=== PATIENT | male | born 1930 | race Caucasian/White ===

== ENCOUNTER → 2016-07-15 | Outpatient (CLI) | payer MEDICARE ==
[2016-07-15 12:26] LABS: INR 1.13 (0.9-1.15); Prothrombin Time 11.6 sec (9.37-12.3)
[2016-07-15 12:40] LABS: Albumin 3.6 g/dL (3.4-5.0); BUN/Creatinine Ratio 21.9; Bilirubin, Total 1.3 mg/dL (0.2-1.0); Calcium 9.5 mg/dL (8.5-10.1); Potassium 4.3 mmol/L (3.5-5.1); Total Protein 7.8 g/dL (6.4-8.2)
[2016-07-15 13:42] LABS: Urine Bilirubin Negative (Negative); Urine Blood Negative /uL (Negative); Urine Color Yellow (Yellow); Urine Glucose Normal (Normal); Urine Ketone Negative (Negative); Urine Mucus FEW (None Seen); Urine Nitrite Negative (Negative); Urine RBC <1 /hpf (0 - 3); Urine Squamous Epithelial Cell FEW /hpf (<5); Urine Urobilinogen Normal (Negative); Urine pH 5.5 (5.0-8.0)
[2016-07-15 14:32] LABS: DEFINITIVE VIEW TRANSMISSION; Hemoglobin 7.7 g/dL (13.5-17.5); Mean Corpuscular Hemoglobin 37.5 pg (28.0-32.0); Mean Corpuscular Hgb Conc. 33.4 g/dL (32.0-36.0); Mean Corpuscular Volume 112.1 fL (80.0-100.0); Mean Platelet Volume 8.3 fL (7.4-10.4); Platelet Count (auto) 59 10^3/uL (140-450); Red Cell Distribution Width 17.4 % (11.6-16.0); SUSPECT VIEW TRANSMISSION
[2016-07-15 14:37] LABS: Myelocytes % 0; Promyelocytes % 0; Reactive Lymphocytes 0
[2016-07-15 14:42] LABS: Metamyelocytes % 1; Platelet Estimate Adequate
[2016-07-15 14:43] LABS: Anisocytosis Moderate; Macrocytosis Moderate
== END | disposition home or self-care (01) ==
LOC: LAB 11:48
PROVIDERS: ATTEND Internal Medicine
DX: R53.82 Chronic fatigue, unspecified (principal); C03.9 Malignant neoplasm of gum, unspecified
CPT/HCPCS: 36415; 80053; 81001; 85007; 85027; 85610; 85730

== ENCOUNTER → 2016-08-04 | Outpatient (CLI) | payer OTHER ==
[~2016-08-04] MED LIST: ATOR20TA50 PO; CARV6.2551 PO; CLOP75TA41 PO; FOLI1TAB6 PO; MAGN400C3 PO; MELA5TAB10 PO; MULT-902 OR; NIAC500T58 PO; VALS40TA2 PO
[2016-08-04 10:45] LABS: DEFINITIVE VIEW TRANSMISSION; Hematocrit 25.3 % (41.0-53.0); Hemoglobin 8.5 g/dL (13.5-17.5); Mean Corpuscular Hemoglobin 32.7 pg (28.0-32.0); Mean Corpuscular Hgb Conc. 33.7 g/dL (32.0-36.0); Mean Corpuscular Volume 97.2 fL (80.0-100.0); Mean Platelet Volume 8.3 fL (7.4-10.4); Platelet Count (auto) 46 10^3/uL (140-450); SUSPECT VIEW TRANSMISSION
[2016-08-04 11:05] LABS: Red Cell Distribution Width 22.3 % (11.6-16.0)
[2016-08-04 11:07] LABS: White Blood Cell 1.4 10^3/uL (4.4-10.8)
[2016-08-04 11:08] LABS: Metamyelocytes % 0; Myelocytes % 0; Promyelocytes % 0; Reactive Lymphocytes 0
[2016-08-04 14:48] LABS: Anisocytosis Moderate; Burr Cells FEW; Platelet Estimate Decreased
[2016-08-04 14:49] LABS: Ovalocytes FEW; Tear Drop Cells FEW
== END | disposition home or self-care (01) ==
LOC: LAB 09:27
PROVIDERS: ATTEND Internal Medicine
DX: D46.9 Myelodysplastic syndrome, unspecified (principal)
CPT/HCPCS: 36415; 85007; 85027

== ENCOUNTER → 2016-08-11 | Outpatient (CLI) | payer OTHER | END | disposition home or self-care (01) | LOC: LAB 10:59 | PROVIDERS: ATTEND Internal Medicine | DX: D64.9 Anemia, unspecified (principal) ==

== ENCOUNTER → 2016-08-16 | Outpatient (CLI) | payer OTHER ==
[2016-08-16 11:20] LABS: DEFINITIVE VIEW TRANSMISSION; SUSPECT VIEW TRANSMISSION
[2016-08-16 11:40] LABS: Hematocrit 18.7 % (41.0-53.0); Mean Corpuscular Hemoglobin 33.6 pg (28.0-32.0); Mean Corpuscular Hgb Conc. 35.2 g/dL (32.0-36.0); Mean Corpuscular Volume 95.4 fL (80.0-100.0); Mean Platelet Volume 8.1 fL (7.4-10.4); Platelet Count (auto) 33 10^3/uL (140-450)
[2016-08-16 11:57] LABS: Red Cell Distribution Width 23.5 % (11.6-16.0)
[2016-08-16 11:59] LABS: Hemoglobin 6.6 g/dL (13.5-17.5); White Blood Cell 1.6 10^3/uL (4.4-10.8)
[2016-08-16 12:00] LABS: Metamyelocytes % 0; Myelocytes % 0; Promyelocytes % 0; Reactive Lymphocytes 0
[2016-08-16 12:10] LABS: Albumin 3.3 g/dL (3.4-5.0); BUN/Creatinine Ratio 23.3; Bilirubin, Total 1.8 mg/dL (0.2-1.0); Calcium 9.9 mg/dL (8.5-10.1); Potassium 4.3 mmol/L (3.5-5.1); Total Protein 7.2 g/dL (6.4-8.2)
[2016-08-16 14:15] LABS: Anisocytosis Marked; Ovalocytes FEW; Platelet Estimate Decreased; Tear Drop Cells FEW
== END | disposition home or self-care (01) ==
LOC: LAB 11:02
PROVIDERS: ATTEND Internal Medicine
DX: D46.9 Myelodysplastic syndrome, unspecified (principal)
CPT/HCPCS: 36415; 80053; 83615; 85007; 85027

== ENCOUNTER → 2016-08-17 | Day surgery (SDC) | payer MEDICARE, OTHER ==
[~2016-08-17] VITALS: Ht 30.5 cm; Wt 0.5 kg
[~2016-08-17] MED LIST changes: +FUROSEMIDE 20 MG/2 ML VIAL IV ONE
[2016-08-17 16:55] VITALS: BP 132/64
== END ==
LOC: EDUNIT# 10:19 → SUR 10:19
PROVIDERS: ATTEND Internal Medicine
DX: D64.9 Anemia, unspecified (principal)
CPT/HCPCS: 36430; 86850; 86900; 86901; J1940; P9016; 86922

== ENCOUNTER → 2016-08-25 | Outpatient (CLI) | payer OTHER ==
[~2016-08-25] MED LIST changes: -FUROSEMIDE 20 MG/2 ML VIAL IV ONE
[2016-08-25 14:34] LABS: Albumin 3.5 g/dL (3.4-5.0); BUN/Creatinine Ratio 21.2; Bilirubin, Total 1.8 mg/dL (0.2-1.0); Calcium 9.8 mg/dL (8.5-10.1); Potassium 4.3 mmol/L (3.5-5.1); Total Protein 7.1 g/dL (6.4-8.2)
[2016-08-25 16:53] LABS: DEFINITIVE VIEW TRANSMISSION; Hematocrit 25.4 % (41.0-53.0); Hemoglobin 8.6 g/dL (13.5-17.5); Mean Corpuscular Hemoglobin 31.6 pg (28.0-32.0); Mean Corpuscular Hgb Conc. 33.9 g/dL (32.0-36.0); Mean Corpuscular Volume 93.3 fL (80.0-100.0); Mean Platelet Volume 10.2 fL (7.4-10.4); SUSPECT VIEW TRANSMISSION
[2016-08-25 17:08] LABS: Red Cell Distribution Width 21.1 % (11.6-16.0); White Blood Cell 1.7 10^3/uL (4.4-10.8)
[2016-08-25 17:09] LABS: Platelet Count (auto) 15 10^3/uL (140-450)
[2016-08-25 17:10] LABS: Metamyelocytes % 0; Myelocytes % 0; Promyelocytes % 0; Reactive Lymphocytes 0
[2016-08-25 19:18] LABS: Anisocytosis Moderate; Platelet Estimate Markedly Decreased
[2016-08-25 19:20] LABS: Ovalocytes FEW; Tear Drop Cells FEW
== END | disposition home or self-care (01) ==
LOC: LAB 13:40
PROVIDERS: ATTEND Internal Medicine
DX: D46.9 Myelodysplastic syndrome, unspecified (principal)
CPT/HCPCS: 36415; 80053; 83615; 85007; 85027

== ENCOUNTER → 2016-08-29 | Outpatient (CLI) | payer OTHER ==
[2016-08-29 14:40] LABS: DEFINITIVE VIEW TRANSMISSION; SUSPECT VIEW TRANSMISSION
[2016-08-29 14:43] LABS: Hematocrit 23.5 % (41.0-53.0); Mean Corpuscular Hemoglobin 32.1 pg (28.0-32.0); Mean Corpuscular Hgb Conc. 34.2 g/dL (32.0-36.0); Mean Corpuscular Volume 93.9 fL (80.0-100.0); Mean Platelet Volume 8.4 fL (7.4-10.4); Platelet Count (auto) 57 10^3/uL (140-450); White Blood Cell 9.3 10^3/uL (4.4-10.8)
[2016-08-29 14:51] LABS: Red Cell Distribution Width 21.7 % (11.6-16.0)
[2016-08-29 14:52] LABS: Promyelocytes % 0; Reactive Lymphocytes 0
[2016-08-29 15:08] LABS: Albumin 3.3 g/dL (3.4-5.0); BUN/Creatinine Ratio 29.5; Calcium 9.1 mg/dL (8.5-10.1); Potassium 4.4 mmol/L (3.5-5.1)
[2016-08-29 15:10] LABS: Bilirubin, Total 2.3 mg/dL (0.2-1.0); Total Protein 7.7 g/dL (6.4-8.2)
[2016-08-29 17:48] LABS: Metamyelocytes % 4; Myelocytes % 2; Platelet Estimate Decreased
[2016-08-29 17:49] LABS: Anisocytosis Moderate; Stomatocytes Few
[2016-08-29 17:50] LABS: Polychromasia Slight; Tear Drop Cells FEW
== END | disposition home or self-care (01) ==
LOC: LAB 14:20
PROVIDERS: ATTEND Internal Medicine
DX: D46.9 Myelodysplastic syndrome, unspecified (principal)
CPT/HCPCS: 36415; 80053; 85007; 85027; 87040; 87086

== ENCOUNTER → 2016-09-07 | Outpatient (CLI) | payer OTHER, MEDICARE ==
[2016-09-07 14:30] LABS: Basophils # (auto) 0 uL; DEFINITIVE VIEW TRANSMISSION; Eosinophils # (auto) 0 uL; Monocytes # (auto) 0 uL; SUSPECT VIEW TRANSMISSION
[2016-09-07 14:49] LABS: Basophils % (auto) 0.1 % (0.0-2.0); Hematocrit 20.6 % (41.0-53.0); Lymphocytes # (auto) 0.7 uL; Lymphocytes % (auto) 46.1 % (10.0-50.0); Mean Corpuscular Hemoglobin 31.9 pg (28.0-32.0); Mean Corpuscular Hgb Conc. 34.2 g/dL (32.0-36.0); Mean Corpuscular Volume 93.3 fL (80.0-100.0); Mean Platelet Volume 10.1 fL (7.4-10.4); Monocytes % (auto) 0.1 % (0.0-12.0); Neutrophils # (auto) 0.8 uL; Neutrophils % (auto) 53.7 % (37.0-80.0); Platelet Count (auto) 21 10^3/uL (140-450)
[2016-09-07 15:18] LABS: Red Cell Distribution Width 21.1 % (11.6-16.0)
[2016-09-07 15:20] LABS: White Blood Cell 1.6 10^3/uL (4.4-10.8)
[2016-09-07 17:23] LABS: Anisocytosis Moderate; Macrocytosis Moderate; Platelet Estimate Markedly Decreased
== END | disposition home or self-care (01) ==
LOC: LAB 13:35
PROVIDERS: ATTEND Internal Medicine
DX: C61 Malignant neoplasm of prostate (principal); D61.9 Aplastic anemia, unspecified
CPT/HCPCS: 36415; 85025

== ENCOUNTER → 2016-09-12 | Outpatient (CLI) | payer OTHER, MEDICARE ==
[2016-09-12 12:29] LABS: DEFINITIVE VIEW TRANSMISSION; Hematocrit 21.5 % (41.0-53.0); Hemoglobin 7.2 g/dL (13.5-17.5); Mean Corpuscular Hemoglobin 32.3 pg (28.0-32.0); Mean Corpuscular Hgb Conc. 33.4 g/dL (32.0-36.0); Mean Corpuscular Volume 96.7 fL (80.0-100.0); Platelet Count (auto) 56 10^3/uL (140-450); SUSPECT VIEW TRANSMISSION
[2016-09-12 12:43] LABS: Red Cell Distribution Width 25.7 % (11.6-16.0)
[2016-09-12 12:45] LABS: White Blood Cell 0.9 10^3/uL (4.4-10.8)
[2016-09-12 12:46] LABS: Myelocytes % 0; Promyelocytes % 0; Reactive Lymphocytes 0
[2016-09-12 13:05] LABS: Anisocytosis Moderate; Macrocytosis Slight; Metamyelocytes % 1; Platelet Estimate Markedly Decreased; Polychromasia Slight
== END | disposition home or self-care (01) ==
LOC: LAB 11:53
PROVIDERS: ATTEND Internal Medicine
DX: D46.9 Myelodysplastic syndrome, unspecified (principal)

== ENCOUNTER → 2016-09-15 | Outpatient (CLI) | payer OTHER, MEDICARE ==
[2016-09-15 11:44] LABS: Basophils # (auto) 0 uL; DEFINITIVE VIEW TRANSMISSION; Eosinophils # (auto) 0 uL; Eosinophils % (auto) 0.1 % (0.0-7.0); Hematocrit 19.4 % (41.0-53.0); Lymphocytes # (auto) 0.7 uL; Lymphocytes % (auto) 32.5 % (10.0-50.0); Mean Corpuscular Hemoglobin 32.4 pg (28.0-32.0); Mean Corpuscular Hgb Conc. 33.3 g/dL (32.0-36.0); Mean Corpuscular Volume 97.3 fL (80.0-100.0); Mean Platelet Volume 8.7 fL (7.4-10.4); Monocytes # (auto) 0 uL; Monocytes % (auto) 0.1 % (0.0-12.0); Neutrophils # (auto) 1.4 uL; Neutrophils % (auto) 67.3 % (37.0-80.0); Platelet Count (auto) 34 10^3/uL (140-450); SUSPECT VIEW TRANSMISSION; White Blood Cell 2.1 10^3/uL (4.4-10.8)
[2016-09-15 12:02] LABS: BUN/Creatinine Ratio 39.4; Calcium 9.6 mg/dL (8.5-10.1); Potassium 4.3 mmol/L (3.5-5.1)
[2016-09-15 12:16] LABS: Red Cell Distribution Width 26.8 % (11.6-16.0)
[2016-09-15 12:18] LABS: Hemoglobin 6.5 g/dL (13.5-17.5)
[2016-09-15 14:28] LABS: Anisocytosis Moderate; Ovalocytes FEW; Platelet Estimate Markedly Decreased; Schistocytes FEW; Stomatocytes Few
== END | disposition home or self-care (01) ==
LOC: LAB 11:17
PROVIDERS: ATTEND Internal Medicine
DX: D46.9 Myelodysplastic syndrome, unspecified (principal)
CPT/HCPCS: 36415; 80048; 85025

== ENCOUNTER → 2016-09-19 | Day surgery (SDC) | payer OTHER ==
[~2016-09-19] MED LIST changes: +FUROSEMIDE 20 MG/2 ML VIAL IV ONE
[2016-09-19 12:00] VITALS: BP 129/66
== END | disposition home or self-care (01) ==
LOC: CATH 07:44
PROVIDERS: ATTEND Internal Medicine
DX: D64.9 Anemia, unspecified (principal)
CPT/HCPCS: 36430; 86850; 86900; 86901; 86920; J1940; P9016; 86922

== ENCOUNTER → 2016-09-22 | Outpatient (CLI) | payer OTHER ==
[~2016-09-22] MED LIST changes: -FUROSEMIDE 20 MG/2 ML VIAL IV ONE
[2016-09-22 14:24] LABS: Basophils # (auto) 0 uL; Basophils % (auto) 0.1 % (0.0-2.0); DEFINITIVE VIEW TRANSMISSION; Eosinophils # (auto) 0 uL; Eosinophils % (auto) 0.5 % (0.0-7.0); Hematocrit 24.2 % (41.0-53.0); Hemoglobin 8.1 g/dL (13.5-17.5); Lymphocytes # (auto) 0.8 uL; Mean Corpuscular Hemoglobin 31.5 pg (28.0-32.0); Mean Corpuscular Hgb Conc. 33.5 g/dL (32.0-36.0); Mean Corpuscular Volume 94.1 fL (80.0-100.0); Mean Platelet Volume 9.8 fL (7.4-10.4); Monocytes # (auto) 0 uL; Monocytes % (auto) 0.2 % (0.0-12.0); Neutrophils # (auto) 0.6 uL; Neutrophils % (auto) 43.2 % (37.0-80.0); SUSPECT VIEW TRANSMISSION
[2016-09-22 15:21] LABS: Platelet Count (auto) 11 10^3/uL (140-450); Red Cell Distribution Width 20.2 % (11.6-16.0); White Blood Cell 1.5 10^3/uL (4.4-10.8)
[2016-09-22 20:07] LABS: Anisocytosis Moderate; Macrocytosis Slight; Platelet Estimate Markedly Decreased
== END | disposition home or self-care (01) ==
LOC: LAB 13:25
PROVIDERS: ATTEND Internal Medicine
DX: D46.9 Myelodysplastic syndrome, unspecified (principal)
CPT/HCPCS: 36415; 85025

== ENCOUNTER → 2016-09-27 | Outpatient (CLI) | payer OTHER ==
[2016-09-27 14:07] LABS: Basophils # (auto) 0 uL; DEFINITIVE VIEW TRANSMISSION; Eosinophils # (auto) 0 uL; Eosinophils % (auto) 0.1 % (0.0-7.0); Hematocrit 24.4 % (41.0-53.0); Hemoglobin 8.2 g/dL (13.5-17.5); Lymphocytes # (auto) 0.8 uL; Lymphocytes % (auto) 13.8 % (10.0-50.0); Mean Corpuscular Hemoglobin 32.1 pg (28.0-32.0); Mean Corpuscular Hgb Conc. 33.5 g/dL (32.0-36.0); Mean Corpuscular Volume 95.8 fL (80.0-100.0); Mean Platelet Volume 9.9 fL (7.4-10.4); Monocytes # (auto) 0 uL; Monocytes % (auto) 0.1 % (0.0-12.0); SUSPECT VIEW TRANSMISSION; White Blood Cell 5.9 10^3/uL (4.4-10.8)
[2016-09-27 14:14] LABS: Red Cell Distribution Width 22.9 % (11.6-16.0)
[2016-09-27 14:16] LABS: Platelet Count (auto) 19 10^3/uL (140-450)
[2016-09-27 14:43] LABS: Anisocytosis Moderate; Platelet Estimate Markedly Decreased
[2016-09-27 14:44] LABS: Ovalocytes FEW
== END | disposition home or self-care (01) ==
LOC: LAB 12:08
PROVIDERS: ATTEND Internal Medicine
DX: D46.9 Myelodysplastic syndrome, unspecified (principal)
CPT/HCPCS: 36415; 85025

== ENCOUNTER → 2016-10-10 | Outpatient (CLI) | payer OTHER ==
[2016-10-10 11:29] LABS: DEFINITIVE VIEW TRANSMISSION; Hematocrit 25.5 % (41.0-53.0); Hemoglobin 8.6 g/dL (13.5-17.5); Mean Corpuscular Hemoglobin 30.8 pg (28.0-32.0); Mean Corpuscular Hgb Conc. 33.5 g/dL (32.0-36.0); Mean Corpuscular Volume 91.7 fL (80.0-100.0); Mean Platelet Volume 8.9 fL (7.4-10.4); Platelet Count (auto) 64 10^3/uL (140-450); Red Cell Distribution Width 18.7 % (11.6-16.0); SUSPECT VIEW TRANSMISSION; White Blood Cell 3.9 10^3/uL (4.4-10.8)
[2016-10-10 11:37] LABS: Metamyelocytes % 0; Myelocytes % 0; Promyelocytes % 0; Reactive Lymphocytes 0
[2016-10-10 12:39] LABS: Albumin 2.8 g/dL (3.4-5.0); Calcium 9.6 mg/dL (8.5-10.1); Potassium 4.2 mmol/L (3.5-5.1)
[2016-10-10 12:48] LABS: BUN/Creatinine Ratio 23.7; Bilirubin, Total 0.8 mg/dL (0.2-1.0); Total Protein 7.9 g/dL (6.4-8.2)
[2016-10-10 13:42] LABS: Anisocytosis Slight; Platelet Estimate Decreased
== END | disposition home or self-care (01) ==
LOC: LAB 10:22
PROVIDERS: ATTEND Internal Medicine
DX: D46.9 Myelodysplastic syndrome, unspecified (principal)
CPT/HCPCS: 36415; 80053; 83615; 85007; 85027

== ENCOUNTER → 2016-11-18 | Day surgery (SDC) | payer OTHER ==
[2016-11-18 10:20] VITALS: BP 107/63
== END | disposition home or self-care (01) ==
LOC: SUR 08:04
PROVIDERS: ATTEND Internal Medicine
DX: D64.9 Anemia, unspecified (principal)
CPT/HCPCS: 36430; 86850; 86900; 86901; 86920; P9016

== ENCOUNTER → 2016-11-25 | Outpatient (CLI) | payer OTHER ==
[2016-11-25 11:41] LABS: Basophils # (auto) 0 uL; Basophils % (auto) 0.3 % (0.0-2.0); DEFINITIVE VIEW TRANSMISSION; Eosinophils # (auto) 0 uL; Eosinophils % (auto) 0.4 % (0.0-7.0); Hematocrit 24.8 % (41.0-53.0); Hemoglobin 8.6 g/dL (13.5-17.5); Lymphocytes # (auto) 0.7 uL; Mean Corpuscular Hemoglobin 31.9 pg (28.0-32.0); Mean Corpuscular Hgb Conc. 34.7 g/dL (32.0-36.0); Mean Corpuscular Volume 91.9 fL (80.0-100.0); Mean Platelet Volume 9.1 fL (7.4-10.4); Monocytes # (auto) 0 uL; Monocytes % (auto) 0.3 % (0.0-12.0); Neutrophils # (auto) 0.9 uL; Platelet Count (auto) 39 10^3/uL (140-450); Red Cell Distribution Width 18.8 % (11.6-16.0); SUSPECT VIEW TRANSMISSION
[2016-11-25 11:45] LABS: White Blood Cell 1.6 10^3/uL (4.4-10.8)
[2016-11-25 12:00] LABS: BUN/Creatinine Ratio 25.8; Calcium 9.5 mg/dL (8.5-10.1); Potassium 4.5 mmol/L (3.5-5.1); Total Protein 7.3 g/dL (6.4-8.2)
[2016-11-25 12:12] LABS: Anisocytosis Slight; Ovalocytes FEW; Platelet Estimate Decreased; Stomatocytes Few
== END | disposition home or self-care (01) ==
LOC: LAB 11:22
PROVIDERS: ATTEND Internal Medicine
DX: D46.9 Myelodysplastic syndrome, unspecified (principal)
CPT/HCPCS: 36415; 80053; 83615; 85025